=== PATIENT | male | born 2000 | race Caucasian/White ===

== ENCOUNTER 2023-12-28 06:41 | Emergency (ER) | payer OTHER, MEDICAID, SELFPAY ==
[2023-12-28] VITALS (9 sets, daily range): BP systolic 143; BP diastolic 78; PULSE 64–91; RESP 13–25; TEMP 36.4–36.9; O2SAT 92–98
[2023-12-28 08:06] LABS: COVID-19 PCR Negative (Negative); Influenza A PCR Negative (Negative); Influenza B PCR Negative (Negative); RSV PCR Negative (Negative)
[2023-12-28 08:07] LABS: Source Nasopharynx
--- NOTE | 2023-12-28 08:21 | W.ED.GENAD ---
Discharge Plan Disposition Patient Disposition: Home Discharge Details Clinical Impression: Upper respiratory infection ED Provider: Zac Dallas Home Meds and New Rx's Prescriptions: No Action No Known Home Meds Discharge Instructions Instructions: Upper Respiratory Infection ED Additional Instructions: Please take ibuprofen over the counter. Take 600mg by mouth every 6 hours as needed for pain. Please drink plenty of fluids and allow for plenty of rest over the next 1 week. Please contact your primary care physician to arrange follow-up. Return to the ER immediately for any worsening or new concerning symptoms. HPI General Mode of arrival: ambulatory. Date/Time Provider Initiated Documentation: 12/28/23 07:45. Limitations to Documentation: no limitations. Information obtained by: patient. HPI Narrative: 23-year-old male presents with chief complaint of respiratory infection. Patient notes sore throat, cough, body aches, runny nose, headache since yesterday. Patient is coughing up phlegm with green discoloration and did have small blood-tinged hemoptysis once as well. Patient visited [facility] in [facility] last week returning home on 12/23. No known sick contacts. Related Data Home Medications ?Medication ?Instructions ?Recorded ?Confirmed Unknown [No Known Home Meds] 12/28/23 12/28/23 Allergies Allergy/AdvReac Type Severity Reaction Status Date / Time No Known Allergies Allergy Unverified 12/28/23 06:49 General Stated Complaint: RespSymp OSMAR: 3 Review of Systems Respiratory Respiratory: Reports as per HPI Exam Const General: cooperative and no acute distress HENMT Mouth: moist mucous membranes Throat: posterior oropharynx normal Other: No stridor, no trismus Eyes Conjunctivae: normal conjunctivae Sclera: normal sclerae Resp Auscultation: rales on the left (fine) in the lower lung redding, no rhonchi and no wheezes Cardio Rate: regular rate and not tachycardic Rhythm: regular rhythm GI Palpation: soft, not firm, no guarding, no masses, not rigid and nontender Skin General skin exam: no rashes or lesions noted Neuro General: patient alert, patient awake and tone normal Extrem General: no edema Course Vital Signs Vital signs: Vital Signs Temperature 36.9 C 12/28/23 06:45 Pulse 87 12/28/23 06:45 Respiratory Rate 20 12/28/23 06:45 Blood Pressure 143/78 H 12/28/23 06:45 Pulse Oximetry 97 12/28/23 06:45 Temperature 36.9 C 12/28/23 06:45 Temperature Source Oral 12/28/23 06:45 Pulse 87 12/28/23 06:45 Pulse 64 12/28/23 08:00 Respiratory Rate 13 12/28/23 08:00 Respiratory Effort Normal, Non-Labored 12/28/23 07:03 Respiratory Depth Normal 12/28/23 07:03 Blood Pressure 143/78 H 12/28/23 06:45 Blood Pressure Position Sitting 12/28/23 06:45 Pulse Oximetry 97 12/28/23 08:00 Oxygen Delivery Method Room Air 12/28/23 06:45 Oxygen Flow Rate 0 12/28/23 06:45 Pain Level 2 12/28/23 06:45 Lab/Test Results Lab/Test Results: 12/28/23 06:50 Tonsil - Not Specified Group A Streptococcus Culture - Pending Laboratory Tests Range/Units 12/28/23 06:50 COVID-19 Source Nasopharynx SARS-CoV-2 (PCR) (Negative) Negative Influenza Type A (PCR) (Negative) Negative Influenza Type B (PCR) (Negative) Negative RSV (PCR) (Negative) Negative POC Strep Test-ADELFO(Rapid) Start: 12/28/23 06:52 Freq: .Rapid Strep Test Status: Active Protocol: Document 12/28/23 07:03 SHAN (Rec: 12/28/23 07:03 SHAN [id number]) Strep test-ADELFO(Rapid)-POC POC-Strep test-ADELFO (Rapid) Negative POC-Strep test-ADELFO (Rapid) Negative Medical Decision Making 23-year-old male here with productive cough, sore throat, body aches, rhinorrhea, headache, since yesterday. Patient is saturating well in no respiratory distress. He no signs of pharyngitis on exam. Patient does have some fine rales left lower lung. Considered pneumonia versus bronchitis. cxr reviewed and interpreted by radiology: No acute pulmonary findings. Plan to treat for bronchitis with supportive care. Usual customary discharge instructions were reviewed with the patient. Quality:SDOH Health Related Social Needs: No Data to Display PFSH All Active Problems (Updated 12/28/23 @ 09:02 by Zac Dallas MD) Upper respiratory infection (Acute) Social History Smoking/Tobacco Use Status: Never Smoking risk assessment performed?: Yes Alcohol Intake: never Drug use: Never Substance use type: does not use
--- NOTE | 2023-12-28 08:31 | DI.RAD_ITS ---
Exam(s) XR CHEST 2V PA LATERAL EXAM: XR CHEST 2V PA LATERAL CLINICAL HISTORY: cough, sore throat, left sided crackles. TECHNIQUE: 2D digital imaging was performed. COMPARISON: No exams were available for comparison FINDINGS: 2 views: Heart size is normal. The mediastinum is not widened. Lungs are clear. No infiltrates nor pleural effusions. IMPRESSION: No acute pulmonary findings. DATA REPOSITORY: RADIATION DOSE DELIVERED:
== END 2023-12-28 09:09 | disposition home or self-care (01) ==
LOC: ER 09:23
PROVIDERS: Emergency Medicine; Emergency Provider Student in an Organized Health Care Education/Training Program
DX: J06.9 Acute upper respiratory infection, unspecified (principal)
CPT/HCPCS: 87637; 87880; 99283; 71046; 87081